=== PATIENT | female | born 1995 | race Caucasian/White ===

== ENCOUNTER 2016-09-15 10:08 | Emergency (ER) | payer MEDICAID, OTHER ==
[2016-09-15] MEDS ORDERED: Ondansetron ODT TAB* 4 MG PO ONE ×2 (12:22)
[2016-09-15 12:37] LABS: Urine Bilirubin Negative (Negative); Urine Glucose Negative (Negative); Urine Nitrite Negative (Negative)
[2016-09-15 14:32] VITALS: BP 128/62
--- NOTE | 2016-09-15 17:56 | ED ---
Meka Lind Salem, scribed for Sae Colorado MD on 09/15/16 at 1127 . Syncope/Near Syncope - HPI Summary HPI Summary: Patient is a 21 y/o female who presents to the ED s/p an episode of syncope yesterday night. She reports having nausea before the syncope and vomiting after it. She also reports she experienced lightheadedness, blurry vision, diaphoresis, and hot flashes before the syncope. She states she has some mild pressure in her head now (located mostly on the right side). She denies dysuria or diarrhea. Her LNMP was in April, but she is on BCP. - History Of Current Complaint Chief Complaint: EDSyncope Time Seen by Provider: 09/15/16 11:19 Hx Obtained From: Patient Onset/Duration: Gradual Onset, Lasting Days - 1 day. Activity At Onset: Other - At grocery store. Associated Head Trauma: No Aggravating Factor(s): Nothing Alleviating Factor(s): Nothing Associated Signs And Symptoms: Diaphoresis, Lightheadedness, Other - Nausea. Blurry vision. Mild pressure in head (right, temporal). - Allergies/Home Medications Allergies/Adverse Reactions: Allergies Allergy/AdvReac Type Severity Reaction Status Date / Time Nickel Allergy Rash Verified 08/10/15 21:49 PMH/Surg Hx/FS Hx/Imm Hx Endocrine/Hematology History: Denies: Hx Diabetes, Hx Thyroid Disease Cardiovascular History: Denies: Hx Hypertension Respiratory History: Reports: Hx Asthma Denies: Hx Chronic Obstructive Pulmonary Disease (COPD) GI History: Denies: Hx Ulcer Psychiatric History: Reports: Hx Anxiety - Ginger's mom when she was 11. Adjusting was hard., Hx Depression - Due to her mom's ., H[facility], [facility] [place] [facility]. She did not prefer this agency., Hx Suicide Attempt - after her mom's ; this prompted the inpatient hospitalization. Denies: Hx Attention Deficit Hyperactivity Disorder, Hx Eating Disorder, Hx Panic Disorder, Hx Post Traumatic Stress Disorder - But her mom's was a traumatic event for her., Hx Schizophrenia, Hx Bipolar Disorder, Hx of Violent Episodes Against Others, Hx Substance Abuse, Other Psychiatric Issues/Disorders - Surgical History Surgery Procedure, Year, and Place: NOVEMBER 2014 Infectious Disease History: No Infectious Disease History: Denies: Hx Hepatitis, Hx Human Immunodeficiency Virus (HIV), Traveled Outside the [place] in Last 30 Days - Family History Known Family History: Positive: Hypertension - Social History Alcohol Use: None Substance Use Type: Reports: None Smoking Status (MU): Former Smoker Type: Cigarettes Review of Systems Positive: Skin Diaphoresis, Other - Hot flash. Positive: Blurred Vision Positive: Nausea. Negative: Diarrhea Positive: no symptoms reported. Negative: dysuria Neurological: Other - Lightheadedness. Positive: Headache - Mild pressure. All Other Systems Reviewed And Are Negative: Yes Physical Exam Triage Information Reviewed: Yes Vital Signs On Initial Exam: Initial Vitals Temp Pulse Resp BP Pulse Ox 97.4 F 72 18 116/75 98 09/15/16 10:19 09/15/16 10:19 09/15/16 10:19 09/15/16 10:19 09/15/16 10:19 Vital Signs Reviewed: Yes Appearance: Positive: Well-Appearing, No Pain Distress Skin: Positive: Warm, Skin Color Reflects Adequate Perfusion, Dry Head/Face: Positive: Normal Head/Face Inspection Eyes: Positive: Normal ENT: Positive: Normal ENT inspection Neck: Positive: Supple, Nontender Respiratory/Lung Sounds: Positive: Clear to Auscultation, Breath Sounds Present Cardiovascular: Positive: RRR Abdomen Description: Positive: Nontender, Soft Bowel Sounds: Positive: Present Musculoskeletal: Positive: Normal Neurological: Positive: Normal Psychiatric: Positive: Normal, Affect/Mood Appropriate Diagnostics - Vital Signs Vital Signs Temp Pulse Resp BP Pulse Ox 09/15/16 10:19 97.4 F 72 18 116/75 98 - Laboratory Lab Results: Lab Results 09/15/16 Range/Units 11:25 Urine Color Yellow Urine Appearance Clear Urine pH 6.0 (5-9) Ur Specific [place] 1.021 (1.010-1.030) Urine Protein Negative (Negative) Urine Ketones Negative (Negative) Urine Blood Negative (Negative) Urine Nitrate Negative (Negative) Urine Bilirubin Negative (Negative) Urine Urobilinogen Negative (Negative) Ur Leukocyte Esterase Negative (Negative) Urine Glucose Negative (Negative) Urine Ascorbic Acid * H (Negative) Lab Statement: Any lab studies that have been ordered have been reviewed, and results considered in the medical decision making process. - EKG 1105 Cardiac Rate: NL EKG Interpretation: NSR @ 60 bpm. Re-Evaluation - Re-Evaluation First Eval Re-Evaluation Time: 14:05 Comment: Discused plan to DC with pt. She is agreable. Course/Dx Course Of Treatment: Ginger felt better after zofran and was completely nontoxic in appearance. This likely represents a viral syndrome and I will treat her symptomatically. - Diagnoses Provider Diagnoses: Near syncope Discharge - Discharge Plan Condition: Stable Disposition: HOME Prescriptions: Ondansetron ODT TAB* [Zofran Odt TAB*] 4 mg PO Q6H PRN #20 tab.odt PRN Reason: Nausea/Vomiting Patient Education Materials: Ondansetron (By mouth), Near Syncope (ED) Referrals: Carola MARTIN,[facility] [Primary Care Provider] - Additional Instructions: Follow up with PCP. The documentation as recorded by the Meka collins Salem accurately reflects the service I personally performed and the decisions made by me, Sae Colorado MD.
== END 2016-09-15 14:33 | disposition home or self-care (01) ==
LOC: ED 10:08
DX: R55 Syncope and collapse (principal); R42 Dizziness and giddiness; H53.8 Other visual disturbances; R11.0 Nausea; Z87.891 Personal history of nicotine dependence
CPT/HCPCS: 36415; 81003; 86703; 93005; 99282; A9270-GY

== ENCOUNTER 2016-11-09 17:04 | Emergency (ER) | payer MEDICAID ==
[2016-11-09 19:53] VITALS: BP 132/75
--- NOTE | 2016-11-09 20:19 | UC ---
Skin Complaint HPI - HPI Summary HPI Summary: The patient comes in today for: 1. Right facial swelling: Onset: She noticed this when she got up this morning. She had a "bump" last night, but "it was not swollen." Palliative/provocative: Eating and pressing on the right facial swelling makes it worse. Quality: Ache Region: Along the right mandible. Severity: 10/10 by her report, but she appears more like 4/10 Time: Constant. Associated symptoms: She states that she has painful teeth. Fever: None. Dental visit: She went yesterday and she had teeth pulled in the upper left. * - History of Current Complaint Chief Complaint: UCRespiratory Time Seen by Provider: 11/09/16 20:10 Stated Complaint: FACIAL SWELLING SINUS CONGESTION Hx Obtained From: Patient Hx Last Menstrual Period: depo, does not get periods - Allergy/Home Medications Allergies/Adverse Reactions: Allergies Allergy/AdvReac Type Severity Reaction Status Date / Time Nickel Allergy Rash Verified 08/10/15 21:49 Review of Systems Constitutional: Negative Skin: Negative Eyes: Negative ENT: Sore Throat, Nasal Discharge Respiratory: Negative, Cough Cardiovascular: Negative Gastrointestinal: Negative Genitourinary: Negative All Other Systems Reviewed And Are Negative: Yes PMH/Surg Hx/FS Hx/Imm Hx Previously Healthy: Yes Endocrine History Of: Denies: Diabetes, Thyroid Disease, Hyperthyroidism, Hypothyroidism, Dyslipidemia Cardiovascular History Of: Denies: Cardiac Disorders, Hypertension, Pacemaker/ICD, Myocardial Infarction , Congestive Heart Failure, Atrial Fibrillation, Deep Vein Thrombosis, Bleeding Disorders Respiratory History Of: Reports: Asthma - She takes albuterol to use prn. Denies: COPD, Bronchitis, Pneumonia, Pulmonary Embolism GI/ History Of: Denies: Gastroesophageal Reflux, Ulcer, Gastrointestinal Bleed, Gall Bladder Disease, Kidney Stones, Diverticulitis, Renal Disease, Urosepsis Neurological History Of: Denies: TIA, CVA, Dementia, Seizures, Migraine Psychological History Of: Reports: Anxiety - Ginger's mom when she was 11. Adjusting was hard., Depression - Due to her mom's . Denies: Bipolar Disorder, Schizophrenia, Post Traumatic Stress Disorder Cancer History Of: Denies: Lung Cancer, Colorectal Cancer, Breast Cancer, Prostate Cancer, Cervical Cancer Other History Of: Negative For: HIV, Hepatitis B, Hepatitis C, Anticoagulant Therapy - Surgical History Surgical History: Yes Surgery Procedure, Year, and Place: NOVEMBER 2014 - Family History Known Family History: Positive: Cardiac Disease, Hypertension - Social History Occupation: Unemployed Alcohol Use: Occasionally Substance Use Type: None Smoking Status (MU): Former Smoker Type: Cigarettes When Did the Patient Quit Smoking/Using Tobacco: april 2015 Physical Exam Triage Information Reviewed: Yes Appearance: Well-Appearing, No Pain Distress, Well-Nourished Vital Signs: Initial Vital Signs Temp 98.9 F 11/09/16 19:48 Pulse 74 11/09/16 19:48 Resp 18 11/09/16 19:48 BP 132/75 11/09/16 19:48 Pulse Ox 100 11/09/16 19:48 Vital Signs Reviewed: Yes Eyes: Positive: Conjunctiva Clear. Negative: Discharge ENT: Positive: Hearing grossly normal. Negative: Pharyngeal erythema, Nasal congestion, Nasal drainage, TM bulging, TM dull, TM red, Tonsillar swelling, Tonsillar exudate Dental: Positive: Gross Decay/Caries @, Other: - Teeth #28 and #29 have deep black craters of the teeth. The swelling of her right cheek corresponds to this area. The gum line is tender to palpation at those teeth. Neck: Positive: Supple, Nontender, No Lymphadenopathy. Negative: Nuchal Rigidity Respiratory: Positive: Lungs clear, No respiratory distress, No accessory muscle use. Negative: Rhonchi, Wheezing Cardiovascular: Positive: RRR, No Murmur Abdomen Description: Positive: Nontender, No Organomegaly, Soft. Negative: Distended, Guarding Musculoskeletal: Positive: Strength Intact, ROM Intact, No Edema Neurological: Positive: Alert, Muscle Tone Normal Psychological: Positive: Age Appropriate Behavior, Consolable Skin: Negative: rashes, breakdown Course/Dx - Diagnoses Provider Diagnoses: Pulpitis #28 and #29. Discharge - Discharge Plan Condition: Stable Disposition: HOME Patient Education Materials: Dental Abscess (ED) Additional Instructions: Follow up with your family dentist as soon as you can.
== END 2016-11-09 21:38 | disposition home or self-care (01) ==
LOC: UCEAST 17:04
DX: K04.01 Reversible pulpitis (principal); J45.909 Unspecified asthma, uncomplicated; F41.8 Other specified anxiety disorders; Z87.891 Personal history of nicotine dependence
CPT/HCPCS: 99212; G0463

== ENCOUNTER 2018-04-16 14:47 | Emergency (ER) | payer MEDICAID, OTHER ==
[2018-04-16] MEDS ORDERED: Thiamine IV* 100 MG, Folic Acid IV* 1 MG, Multiple Vitamin IV ADULT* 10 ML in NS 0.9% 1... IV ONE (15:06)
[2018-04-16] MEDS ORDERED: Acetaminophen TAB* 325 MG PO ONE (15:06)
[2018-04-16] MEDS ORDERED: Ondansetron INJ* 2 MG/ML VIAL IV ONE (15:06)
--- NOTE | 2018-04-16 15:40 | ED ---
Nausea/Vomiting/Diarrhea HPI - HPI Summary HPI Summary: Patient is a 23-year-old female presenting to the ED with nausea and vomiting after drinking approximately 10 drinks of vodka and cranberry juice last evening. She states "I'm holding over." She states she has been throwing up 3 with pink fluid. Denies any chest pain or difficulty breathing. She is also endorsing some sweats and chills, but denies any fever. She has been otherwise well and denies any recent illness. She normally has 3-4 drinks when she drinks and this time she drank 10+ drinks. Denies any urinary symptoms, abdominal pain or chance of . - History of Current Complaint Chief Complaint: EDGeneral Stated Complaint: SPIT UP BLOOD Time Seen by Provider: 04/16/18 14:58 Hx Obtained From: Patient Hx Last Menstrual Period: depo, does not get periods ?: No Onset/Duration: Sudden Onset Timing: Constant Severity Initially: Moderate Severity Currently: Moderate Pain Intensity: 10 Pain Scale Used: 0-10 Numeric Aggravating Factor(s): Nothing Nausea/Vomiting Presence: None Vomiting Frequency: Every 3-4 hours Nausea/Vomiting Duration: 0-12 hours Diarrhea Presence: No - Risk Factors Influenza Risk Factors: Negative Surgical Obstruction Risk Factor(s): Negative - Allergies/Home Medications Allergies/Adverse Reactions: Allergies Allergy/AdvReac Type Severity Reaction Status Date / Time nickel Allergy Rash Verified 04/16/18 14:50 Home Medications: Home Medications NK [No Home Medications Reported] 04/16/18 [History Confirmed 04/16/18] PMH/Surg Hx/FS Hx/Imm Hx Previously Healthy: Yes Endocrine/Hematology History: Denies: Hx Anticoagulant Therapy, Hx Diabetes, Hx Thyroid Disease Cardiovascular History: Denies: Hx Congestive Heart Failure, Hx Deep Vein Thrombosis, Hx Hypertension , Hx Myocardial Infarction, Hx Pacemaker/ICD Respiratory History: Reports: Hx Asthma - She takes albuterol to use prn. Denies: Hx Chronic Obstructive Pulmonary Disease (COPD), Hx Lung Cancer, Hx Pneumonia, Hx Pulmonary Embolism GI History: Denies: Hx Gall Bladder Disease, Hx Gastrointestinal Bleed, Hx Ulcer, Hx Urosepsis History: Denies: Hx Kidney Stones, Hx Renal Disease Neurological History: Denies: Hx Dementia, Hx Migraine, Hx Seizures, Hx Transient Ischemic Attacks (TIA) Psychiatric History: Reports: Hx Anxiety - Ginger's mom when she was 11. Adjusting was hard., Hx Depression - Due to her mom's ., [facility], [facility] [place] [facility]. She did not prefer this agency., Hx Suicide Attempt - after her mom's ; this prompted the inpatient hospitalization. Denies: Hx Attention Deficit Hyperactivity Disorder, Hx Eating Disorder, Hx Panic Disorder, Hx Post Traumatic Stress Disorder - But her mom's was a traumatic event for her., Hx Schizophrenia, Hx Bipolar Disorder, Hx of Violent Episodes Against Others, Hx Substance Abuse, Other Psychiatric Issues/Disorders - Surgical History Surgery Procedure, Year, and Place: NOVEMBER 2014 - Immunization History Hx Pertussis Vaccination: No Immunizations Up to Date: Yes Infectious Disease History: No Infectious Disease History: Denies: Hx Hepatitis, Hx Human Immunodeficiency Virus (HIV), Traveled Outside the [place] in Last 30 Days - Family History Known Family History: Positive: Cardiac Disease, Hypertension - Social History Occupation: Employed Full-time Lives: With Family Alcohol Use: None Hx Substance Use: Yes - normal limits Substance Use Type: Reports: Marijuana Substance Use Comment - Amount & Last Used: 04/15 Smoking Status (MU): Current Some Day Smoker Type: Cigarettes Review of Systems Constitutional: Negative Negative: Fever, Chills, Fatigue, Skin Diaphoresis Negative: Palpitations, Chest Pain Negative: Shortness Of Breath, Cough Positive: Vomiting, Nausea. Negative: Abdominal Pain, Diarrhea Genitourinary: Negative Positive: no symptoms reported, see HPI Negative: Myalgia Positive: Headache Psychological: Normal All Other Systems Reviewed And Are Negative: Yes Physical Exam Triage Information Reviewed: Yes Vital Signs On Initial Exam: Initial Vitals Temp Pulse Resp BP Pulse Ox 96.5 F 83 16 130/88 97 04/16/18 14:50 04/16/18 14:50 04/16/18 14:50 04/16/18 14:50 04/16/18 14:50 Vital Signs Reviewed: Yes Appearance: Positive: Well-Appearing, Well-Nourished Skin: Positive: Warm, Skin Color Reflects Adequate Perfusion Head/Face: Positive: Normal Head/Face Inspection Eyes: Positive: EOMI, FREDO, Conjunctiva Clear Neck: Positive: Supple Respiratory/Lung Sounds: Positive: Clear to Auscultation, Breath Sounds Present Cardiovascular: Positive: RRR, Pulses are Symmetrical in both Upper and Lower Extremities Abdomen Description: Positive: Nontender, Soft Musculoskeletal: Positive: Normal, Strength/ROM Intact Neurological: Positive: Speech Normal Psychiatric: Positive: Normal, Affect/Mood Appropriate AVPU Assessment: Alert Diagnostics - Vital Signs Vital Signs Temp Pulse Resp BP Pulse Ox 04/16/18 14:50 96.5 F 83 16 130/88 97 - Laboratory Lab Statement: Any lab studies that have been ordered have been reviewed, and results considered in the medical decision making process. Naus/Vom/Diarrhea Course/Dx - Course Course Of Treatment: During the course of treatment, the patient is evaluated for alcohol intoxication hangover. She appears nontoxic with normal vital signs. She is given 1 banana bag and Zofran with good relief. - Differential Dx/Diagnosis Provider Diagnoses: alcohol reaction Condition At Discharge: Stable Discharge - Sign-Out/Discharge Documenting (check all that apply): Patient Departure - Discharge Plan Condition: Stable Disposition: HOME Referrals: Carola MARTIN,[facility] [Primary Care Provider] - Additional Instructions: [place] food and gatorade! - Billing Disposition and Condition Condition: STABLE Disposition: Home
[2018-04-16 17:16] VITALS: BP 123/78
== END 2018-04-16 17:16 | disposition home or self-care (01) ==
LOC: ED 14:47
DX: F10.20 Alcohol dependence, uncomplicated (principal); F17.210 Nicotine dependence, cigarettes, uncomplicated
CPT/HCPCS: 96365; 96375; 99282; A9270-GY; J2405; J3411

== ENCOUNTER 2018-09-14 12:19 | Emergency (ER) | payer OTHER ==
[2018-09-14 12:51] LABS: Influenza A Molecular POSITIVE (Negative)
[2018-09-14] MEDS ORDERED: Ibuprofen TAB* 600 MG PO ONE (13:42)
[2018-09-14 13:59] VITALS: BP 133/97
--- NOTE | 2018-09-14 15:17 | ED ---
Influenza-Like Illness - HPI Summary HPI Summary: Patient is a 23-year-old female with no significant PMH presenting to the ED with flulike symptoms. She endorses cough, congestion, body aches 2 days. She endorses subjective fevers, sweats and chills. Denies any chest pain. Denies any urinary symptoms. She denies any abdominal pain. She states she is otherwise healthy and takes no medications. She did not receive flu vaccine this year. - History of Current Complaint Chief Complaint: EDFluSymptoms Time Seen by Provider: 09/14/18 12:41 Hx Obtained From: Patient Onset/Duration: Sudden Onset Severity: Moderate Associated Signs & Symptoms: Fever, T Max - 100.5, F/C, Myalgia, Cough, Nasal Congestion Related Hx: Possible Flu/Infectious Exposure - Risk Factors Influenza Risk Factors: Negative - Allergy/Home Medications Allergies/Adverse Reactions: Allergies Allergy/AdvReac Type Severity Reaction Status Date / Time nickel Allergy Rash Verified 09/14/18 12:23 PMH/Surg Hx/FS Hx/Imm Hx Previously Healthy: Yes Endocrine/Hematology History: Denies: Hx Anticoagulant Therapy, Hx Diabetes, Hx Thyroid Disease Cardiovascular History: Denies: Hx Congestive Heart Failure, Hx Deep Vein Thrombosis, Hx Hypertension , Hx Myocardial Infarction, Hx Pacemaker/ICD Respiratory History: Reports: Hx Asthma - She takes albuterol to use prn. Denies: Hx Chronic Obstructive Pulmonary Disease (COPD), Hx Lung Cancer, Hx Pneumonia, Hx Pulmonary Embolism GI History: Denies: Hx Gall Bladder Disease, Hx Gastrointestinal Bleed, Hx Ulcer, Hx Urosepsis History: Denies: Hx Kidney Stones, Hx Renal Disease Neurological History: Denies: Hx Dementia, Hx Migraine, Hx Seizures, Hx Transient Ischemic Attacks (TIA) Psychiatric History: Reports: Hx Anxiety - Ginger's mom when she was 11. Adjusting was hard., Hx Depression - Due to her mom's ., [facility], [facility] [facility]. She did not prefer this agency., Hx Suicide Attempt - after her mom's ; this prompted the inpatient hospitalization. Denies: Hx Attention Deficit Hyperactivity Disorder, Hx Eating Disorder, Hx Panic Disorder, Hx Post Traumatic Stress Disorder - But her mom's was a traumatic event for her., Hx Schizophrenia, Hx Bipolar Disorder, Hx of Violent Episodes Against Others, Hx Substance Abuse, Other Psychiatric Issues/Disorders - Surgical History Surgery Procedure, Year, and Place: NOVEMBER 2014 - Immunization History Hx Pertussis Vaccination: No Immunizations Up to Date: Yes Infectious Disease History: No Infectious Disease History: Denies: Hx Hepatitis, Hx Human Immunodeficiency Virus (HIV), Traveled Outside the [place] in Last 30 Days - Family History Known Family History: Positive: Cardiac Disease, Hypertension - Social History Occupation: Employed Full-time Lives: Alone Alcohol Use: None Hx Substance Use: Yes - normal limits Substance Use Type: Reports: Marijuana Substance Use Comment - Amount & Last Used: 04/15 Hx Tobacco Use: Yes Smoking Status (MU): Current Some Day Smoker Type: Cigarettes Review of Systems Positive: Fever, Chills, Fatigue, Skin Diaphoresis Negative: Photophobia, Blurred Vision Negative: Sore Throat Negative: Palpitations, Chest Pain Positive: Shortness Of Breath, Cough Positive: Nausea. Negative: Abdominal Pain, Vomiting, Diarrhea Genitourinary: Negative Positive: no symptoms reported, see HPI Positive: Myalgia Skin: Negative Positive: Headache All Other Systems Reviewed And Are Negative: Yes Physical Exam Triage Information Reviewed: Yes Vital Signs On Initial Exam: Initial Vitals Temp Pulse Resp BP Pulse Ox 98.2 F 99 16 133/92 97 09/14/18 12:20 09/14/18 12:20 09/14/18 12:20 09/14/18 12:20 09/14/18 12:20 Vital Signs Reviewed: Yes Appearance: Positive: Well-Appearing, Well-Nourished, Ill-Appearing Skin: Positive: Warm, Diaphoretic ENT: Positive: Pharynx normal. Negative: Tonsillar swelling, Tonsillar exudate , Hoarse voice, Dental tenderness, Sinus tenderness, Uvula midline Neck: Positive: Supple, No Lymphadenopathy Respiratory/Lung Sounds: Positive: Clear to Auscultation, Breath Sounds Present Cardiovascular: Positive: RRR, Pulses are Symmetrical in both Upper and Lower Extremities Musculoskeletal: Positive: Strength/ROM Intact Neurological: Positive: Alert, Oriented to Person Place, Time, Speech Normal Psychiatric: Positive: Affect/Mood Appropriate Diagnostics - Vital Signs Vital Signs Temp Pulse Resp BP Pulse Ox 09/14/18 13:58 100.0 F 82 14 133/97 98 09/14/18 12:20 98.2 F 99 16 133/92 97 - Laboratory Lab Results: Lab Results 09/14/18 Range/Units 12:46 Influenza A (Rapid) Positive A (Negative) Lab Statement: Any lab studies that have been ordered have been reviewed, and results considered in the medical decision making process. Flu Symptom Course/Dx - Course Course Of Treatment: During the course treatment, the patient's evaluated for flulike symptoms. Patient appears well, however slightly diaphoretic. Lungs CTA. RRR. Influenza positive. Discussed treatment options with the patient. She declines medications at this time. I have given her supportive care measures. - Diagnoses Differential Diagnosis/HQI/PQRI: Positive: Bronchitis, Influenza Provider Diagnoses: Influenza A Discharge - Sign-Out/Discharge Documenting (check all that apply): Patient Departure Patient Received Moderate/Deep Sedation with Procedure: No - Discharge Plan Condition: Stable Disposition: HOME Patient Education Materials: Influenza (ED) Referrals: Carola MARTIN,Vandana [Primary Care Provider] - Additional Instructions: Follow up with PCP for any worsening symptoms Continue with Tamiflu at home Drink plenty of fluids Tylenol and ibuprofen may be used intermittently for symptom control - Billing Disposition and Condition Condition: STABLE Disposition: Home
== END 2018-09-14 13:58 | disposition home or self-care (01) ==
LOC: ED 12:19
DX: J10.1 Influenza due to other identified influenza virus with other respiratory manifestations (principal); J45.909 Unspecified asthma, uncomplicated; Z72.0 Tobacco use
CPT/HCPCS: 99282; A9270-GY

== ENCOUNTER 2018-12-31 12:17 | Emergency (ER) | payer OTHER ==
[2018-12-31] MEDS ORDERED: NS 0.9% 1000 ML** 1,000 ML IV ONE (13:18)
[2018-12-31] MEDS ORDERED: diPHENhydraMINE IV* 50 MG/ML 1 ml VIAL (BENADRYL) IV ONE (13:18)
[2018-12-31] MEDS ORDERED: Ketorolac INJ* 30 MG/ML 1 ML VIAL IV PUSH ONE (13:18)
[2018-12-31] MEDS ORDERED: Metoclopramide IV* 5 MG/ML 2 ML VIAL IV ONE (13:18)
--- NOTE | 2018-12-31 14:27 | ED ---
Headache - HPI Summary HPI Summary: A 23 y/o female presents to [facility] with a chief complaint of headache for the past week. She has never been to a neurologist, but states that she was diagnosed with migraines from her PCP. The patient rates her pain as a 10/10 in severity. She denies fevers, chills, neck pain or neck stiffness, but reports photophobia, and N/V this morning. She is on Nexplanon control. She has no known allergies. - History Of Current Complaint Chief Complaint: EDHeadache Stated Complaint: MIGRAINE/VOMITING PER PT Time Seen by Provider: 12/31/18 13:13 Hx Obtained From: Patient Hx Last Menstrual Period: depo, does not get periods Onset/Duration: Sudden Onset Initially Headache Was: Severe Currently Pain Is: Current Pain Scale(0-10)= - 10, Severe Timing: Constant Character: Unable To Describe Location of Headache: Diffuse Radiates to: no radiating pain Aggravating Factor: Bright Lights Allevating Factors: Nothing Associated Signs And Symptoms: Nausea, Vomiting - Allergies/Home Medications Allergies/Adverse Reactions: Allergies Allergy/AdvReac Type Severity Reaction Status Date / Time nickel Allergy Rash Verified 12/31/18 12:42 Home Medications: Home Medications Ibuprofen TAB* [Motrin TAB* 400 MG] 400 mg PO Q6H PRN 12/31/18 [History Confirmed 12/31/18] PMH/Surg Hx/FS Hx/Imm Hx Endocrine/Hematology History: Denies: Hx Anticoagulant Therapy, Hx Diabetes, Hx Thyroid Disease Cardiovascular History: Denies: Hx Congestive Heart Failure, Hx Deep Vein Thrombosis, Hx Hypertension , Hx Myocardial Infarction, Hx Pacemaker/ICD Respiratory History: Reports: Hx Asthma - She takes albuterol to use prn. Denies: Hx Chronic Obstructive Pulmonary Disease (COPD), Hx Lung Cancer, Hx Pneumonia, Hx Pulmonary Embolism GI History: Denies: Hx Gall Bladder Disease, Hx Gastrointestinal Bleed, Hx Ulcer, Hx Urosepsis History: Denies: Hx Kidney Stones, Hx Renal Disease Neurological History: Denies: Hx Dementia, Hx Migraine, Hx Seizures, Hx Transient Ischemic Attacks (TIA) Psychiatric History: Reports: Hx Anxiety - Ginger's mom when she was 11. Adjusting was hard., Hx Depression - Due to her mom's ., Hx [facility], [facility] She did not prefer this agency., Hx Suicide Attempt - after her mom's ; this prompted the inpatient hospitalization. Denies: Hx Attention Deficit Hyperactivity Disorder, Hx Eating Disorder, Hx Panic Disorder, Hx Post Traumatic Stress Disorder - But her mom's was a traumatic event for her., Hx Schizophrenia, Hx Bipolar Disorder, Hx of Violent Episodes Against Others, Hx Substance Abuse, Other Psychiatric Issues/Disorders - Surgical History Surgery Procedure, Year, and Place: NOVEMBER 2014 Infectious Disease History: No Infectious Disease History: Denies: Hx Hepatitis, Hx Human Immunodeficiency Virus (HIV), Traveled Outside the [place] in Last 30 Days - Family History Known Family History: Positive: Cardiac Disease, Hypertension - Social History Alcohol Use: None Hx Substance Use: Yes - normal limits Substance Use Type: Reports: Marijuana Substance Use Comment - Amount & Last Used: 04/15 Hx Tobacco Use: Yes Smoking Status (MU): Current Some Day Smoker Type: Cigarettes Review of Systems Negative: Fever, Chills Positive: Photophobia Positive: Vomiting, Nausea Positive: Other - negative: neck pain or neck stiffness Positive: Headache All Other Systems Reviewed And Are Negative: Yes Physical Exam - Summary Physical Exam Summary: GENERAL: Patient is a well-developed and nourished F who is lying comfortable in the stretcher. Patient is not in any acute respiratory distress. HEAD AND FACE: Normocephalic EYES: PERRLA, EOMI x 2. EARS: Hearing grossly intact. MOUTH: Oropharynx within normal limits. NECK: Supple, trachea is midline, no adenopathy, no JVD, no carotid bruit. CHEST: Symmetric, no tenderness at palpation LUNGS: Clear to auscultation bilaterally. No wheezing or crackles. CVS: Regular rate and rhythm, S1 and S2 present, no murmurs or gallops appreciated. ABDOMEN: Soft, non-tender. Bowel sounds are normal. No abnormal abdominal pulsations. EXTREMITIES: Full ROM in all major joints, no edema, no cyanosis or clubbing. NEURO: Alert and oriented x 3. No acute neurological deficits. Speech is normal and follows commands. SKIN: Dry and warm Neuro exam extended: Cranial nerves II-XII grossly intact, no dysmetria finger to nose, nml heel to olvera Triage Information Reviewed: Yes Vital Signs On Initial Exam: Initial Vitals Temp Pulse Resp BP Pulse Ox 97.3 F 75 14 124/94 98 12/31/18 12:41 12/31/18 12:41 12/31/18 12:41 12/31/18 12:41 12/31/18 12:41 Vital Signs Reviewed: Yes Diagnostics - Vital Signs Vital Signs Temp Pulse Resp BP Pulse Ox 12/31/18 13:47 70 134/94 94 12/31/18 13:43 70 134/94 93 12/31/18 13:13 72 129/92 98 12/31/18 12:41 97.3 F 75 14 124/94 98 - Laboratory Lab Statement: Any lab studies that have been ordered have been reviewed, and results considered in the medical decision making process. Re-Evaluation - Re-Evaluation First Eval Re-Evaluation Time: 14:26 Change: Improved Comment: Pt reports feeling better and wants to go home. Headache Course/Dx - Course Course Of Treatment: A 23 y/o female presents to [facility] with a chief complaint of headache for the past week. The physical exam was unremarkable. In the ED course the patient was given Toradol IV, Reglan IV, Benadryl IV and Sodium Chloride IV. Upon re-eval the patient was feeling better and requesting discharge home. The patient will be discharged home. I discussed results with patient, and she reports feeling better. She is hemodynamically stable and safe for discharge. Strict return precautions given and she will otherwise follow up with her PCP. - Diagnoses Provider Diagnoses: Headache Discharge - Sign-Out/Discharge Documenting (check all that apply): Patient Departure - DC Patient Received Moderate/Deep Sedation with Procedure: No - Discharge Plan Condition: Stable Disposition: HOME Patient Education Materials: Acute Headache (DC) Referrals: Carola MARTINjosephine [Primary Care Provider] - (1-3 days) Additional Instructions: Follow up with your primary care physician in 1-3 days. RETURN TO THE EMERGENCY DEPARTMENT FOR CHANGING OR WORSENING SYMPTOMS. - Billing Disposition and Condition Condition: STABLE Disposition: Home - Attestation Statements Document Initiated by Scribe: Yes Documenting Scribe: Omar Coronado Provider For Whom Scribe is Documenting (Include Credential): Scot Nicole MD Scribe Attestation: Omar Lind, scribed for Scot Nicole MD on 12/31/18 at 1815. Scribe Documentation Reviewed: Yes Provider Attestation: The documentation as recorded by the scribe, Omar Coronado accurately reflects the service I personally performed and the decisions made by me, Thao Nicole MD Status of Scribe Document: Viewed
[2018-12-31 14:31] VITALS: BP 128/91
== END 2018-12-31 14:34 | disposition home or self-care (01) ==
LOC: ED 12:17
DX: R51 Headache (principal); F17.210 Nicotine dependence, cigarettes, uncomplicated
CPT/HCPCS: 96361; 96374; 96375; 99282; J1200; J1885; J2765

== ENCOUNTER 2019-07-05 17:24 | Emergency (ER) | payer OTHER ==
--- NOTE | 2019-07-05 17:42 | ED ---
Abdominal Pain/Female - HPI Summary HPI Summary: Patient complains of bilateral lower pelvic pain starting this morning, sensation of tingling all urinating with increased frequency, and/V 1. Abdominal pain described as constant, new onset, sharp and crampy, 10 out of 10 at worst, worse with walking. Denies fever, cough, sore throat, CP, SOB, diarrhea, vaginal symptoms. Medical history is none. Abdominal surgical history is none. LMP 1 month ago. - History of Current Complaint Chief Complaint: EDUrogenitalProblems Stated Complaint: STOMACH TROUBLE PER PT Time Seen by Provider: 07/05/19 17:39 Hx Obtained From: Patient Hx Last Menstrual Period: depo, does not get periods Onset/Duration: Sudden Onset, Lasting Hours Timing: Constant Severity Initially: Moderate Severity Currently: Severe Pain Intensity: 10 Pain Scale Used: 0-10 Numeric Location: Discrete At: RLQ, Discrete At: LLQ, Suprapubic Radiates: No Character: Sharp, Cramping Aggravating Factor(s): Movement Alleviating Factor(s): Position Associated Signs and Symptoms: Positive: Urinary Symptoms, Nausea, Vomiting Allergies/Adverse Reactions: Allergies Allergy/AdvReac Type Severity Reaction Status Date / Time nickel Allergy Rash Verified 03/04/19 15:22 PMH/Surg Hx/FS Hx/Imm Hx Endocrine/Hematology History: Denies: Hx Anticoagulant Therapy, Hx Diabetes, Hx Thyroid Disease Cardiovascular History: Denies: Hx Congestive Heart Failure, Hx Deep Vein Thrombosis, Hx Hypertension , Hx Myocardial Infarction, Hx Pacemaker/ICD Respiratory History: Reports: Hx Asthma - She takes albuterol to use prn. Denies: Hx Chronic Obstructive Pulmonary Disease (COPD), Hx Lung Cancer, Hx Pneumonia, Hx Pulmonary Embolism GI History: Denies: Hx Gall Bladder Disease, Hx Gastrointestinal Bleed, Hx Ulcer, Hx Urosepsis History: Denies: Hx Kidney Stones, Hx Renal Disease Sensory History: Denies: Hx Eye Prosthesis Opthamlomology History: Denies: Hx Legally Blind EENT History: Denies: Hx Deafness Neurological History: Denies: Hx Dementia, Hx Migraine, Hx Seizures, Hx Transient Ischemic Attacks (TIA) Psychiatric History: Reports: Hx Anxiety - Ginger's mom when she was 11. Adjusting was hard., Hx Depression - Due to her mom's ., Hx [facility] - [facility], Hx [facility] - [facility]. She did not prefer this agency., Hx Suicide Attempt - after her mom's ; this prompted the inpatient hospitalization. Denies: Hx Attention Deficit Hyperactivity Disorder, Hx Eating Disorder, Hx Panic Disorder, Hx Post Traumatic Stress Disorder - But her mom's was a traumatic event for her., Hx Schizophrenia, Hx Bipolar Disorder, Hx of Violent Episodes Against Others, Hx Substance Abuse, Other Psychiatric Issues/Disorders - Surgical History Surgery Procedure, Year, and Place: NOVEMBER 2014 Infectious Disease History: No Infectious Disease History: Denies: Hx Hepatitis, Hx Human Immunodeficiency Virus (HIV), Traveled Outside the [place] in Last 30 Days - Family History Known Family History: Positive: Cardiac Disease, Hypertension - Social History Alcohol Use: Weekly Alcohol Amount: reports drinking a pint of Henasy last nigh Hx Substance Use: Yes - normal limits Substance Use Type: Reports: Marijuana Substance Use Comment - Amount & Last Used: 04/15 Hx Tobacco Use: Yes Smoking Status (MU): Current Some Day Smoker Type: Cigarettes Review of Systems Constitutional: Negative Eyes: Negative ENT: Negative Cardiovascular: Negative Respiratory: Negative Positive: Abdominal Pain, Vomiting, Nausea Positive: frequency Musculoskeletal: Negative Skin: Negative Neurological: Negative Psychological: Normal All Other Systems Reviewed And Are Negative: Yes Physical Exam - Summary Physical Exam Summary: Mildly tender to palpation lower quadrants and suprapubically. Otherwise normal abdominal exam. Triage Information Reviewed: Yes Vital Signs On Initial Exam: Initial Vitals Temp Pulse Resp BP Pulse Ox 97.3 F 95 19 135/76 99 07/05/19 17:25 07/05/19 17:25 07/05/19 17:25 07/05/19 17:25 07/05/19 17:25 Vital Signs Reviewed: Yes Appearance: Positive: Well-Appearing Skin: Positive: Warm Head/Face: Positive: Normal Head/Face Inspection Eyes: Positive: Normal Neck: Positive: Supple Respiratory/Lung Sounds: Positive: Clear to Auscultation Cardiovascular: Positive: Normal Abdomen Description: Positive: Other: Musculoskeletal: Positive: Normal Neurological: Positive: Normal Psychiatric: Positive: Normal AVPU Assessment: Alert - Luis Antonio Coma Scale Best Eye Response: 4 - Spontaneous Best Motor Response: 6 - Obeys Commands Best Verbal Response: 5 - Oriented Coma Scale Total: 15 Procedures - Sedation Patient Received Moderate/Deep Sedation with Procedure: No Diagnostics - Vital Signs Vital Signs Temp Pulse Resp BP Pulse Ox 07/05/19 17:25 97.3 F 95 19 135/76 99 - Laboratory Result Diagrams: 07/05/19 17:49 07/05/19 17:49 Lab Statement: Any lab studies that have been ordered have been reviewed, and results considered in the medical decision making process. Abdominal Pain Fem Course/Dx - Course Course Of Treatment: Patient complains of bilateral lower pelvic pain starting this morning, sensation of tingling all urinating with increased frequency, and/ V 1. Abdominal pain described as constant, new onset, sharp and crampy, 10 out of 10 at worst, worse with walking. Denies fever, cough, sore throat, CP, SOB, diarrhea, vaginal symptoms. Medical history is none. Abdominal surgical history is none. LMP 1 month ago. Vital signs within normal limits. WBC 15. CRP 36. HCG 0.63. Labs otherwise unremarkable. Urine suggests possible UTI, possible candiduria. Ultrasound suggests possible hemorrhagic cyst versus endometrioma of the left ovary measuring a maximum of 1.3 cm. No evidence of ovarian torsion. Pelvic exam suggests is infection of the vaginal vault. Diflucan 150 by mouth 1. Toradol 30 mg IV. Cultures from urine and pelvic exams pending. Advised patient to get follow-up hCG reading in 2 days. - Diagnoses Provider Diagnoses: Yeast infection of the vagina, Ovarian cyst Discharge ED - Sign-Out/Discharge Documenting (check all that apply): Patient Departure - Discharge Plan Condition: Stable Disposition: HOME Prescriptions: Ondansetron ODT TAB* [Zofran 4 MG Odt TAB*] 4 mg PO Q8H PRN 4 Days #14 tab.odt PRN Reason: Nausea Patient Education Materials: Ovarian Cyst (ED), Yeast Infection (ED) Referrals: Ilana Blackwell MD [Primary Care Provider] - Devan Smith MD [Medical Doctor] - Additional Instructions: You have been treated for yeast infection here in the ED. Urine cultures and vaginal cultures are pending and you will be called if results of the cultures require treatment. For ovarian cyst alternate ibuprofen 600 mg with Tylenol 650 mg every 3 hours if needed for pain over the next 4 days. Follow-up with OB /[facility] Dr Smith for further evaluation of cysts. Return to the ED for any new or worsening symptoms. - Billing Disposition and Condition Condition: STABLE Disposition: Home
[2019-07-05 18:02] LABS: ABS Basophils 0.1 10^3/ul (0-0.2); ABS Eosinophils 0.1 10^3/ul (0-0.6); ABS Lymphocytes 1.8 10^3/ul (1.0-4.8); ABS Monocytes 1.1 10^3/ul (0-0.8); ABS Neutrophils 11.9 10^3/ul (1.5-7.7); Eosinophil % 0.4 %; Hematocrit 41 % (35-47); Hemoglobin 13.6 g/dL (12.0-16.0); Mean Corpuscular HGB Conc 33 g/dL (31-36); Mean Corpuscular Hemoglobin 27 pg (27-31); Mean Corpuscular Volume 83 fL (80-97); Mean Platelet Volume 7.9 fL (7.4-10.4); Platelet Count 267 10^3/uL (150-450); Red Blood Count 4.97 10^6 /uL (3.70-4.87); Red Cell Distribution Width 14 % (10-15)
[2019-07-05 18:20] LABS: Albumin 4.4 g/dL (3.2-5.2); Albumin/Globulin Ratio 1.4 (1-3); BUN/Creatinine Ratio 14.9 (8-20); C Reactive Protein 36.44 mg/L (<8.01); Calcium 9.5 mg/dL (8.6-10.3); EGFR African American 130.8 (>60); EGFR Non-African American 108.1 (>60); Globulin 3.1 g/dL (2-4); Potassium 3.7 mmol/L (3.5-5.0); Total Bilirubin 0.7 mg/dL (0.2-1.0); Total Protein 7.5 g/dL (6.4-8.9)
[2019-07-05 18:26] LABS: HCG Pregnancy 0.63 mIU/mL
[2019-07-05 18:32] LABS: Urine Appearance Turbid; Urine Bilirubin Negative (Negative); Urine Blood 2+ (Negative); Urine Color Yellow; Urine Glucose Negative (Negative); Urine Ketones Negative (Negative); Urine Nitrite Negative (Negative); Urine Protein 2+(100 mg/dL) (Negative); Urine Specific Gravity 1.013 (1.010-1.030); Urine Urobilinogen Negative (Negative)
[2019-07-05 18:36] LABS: Urine Bacteria Absent (Absent); Urine Red Blood Cell 2+(6-10/hpf) (Absent); Urine Squamous Epithelial Cell Present (Absent); Urine White Blood Cell 3+(>20/hpf) (Absent)
[2019-07-05] MEDS: NS 0.9% 1000 ML** 1,000 ML IV ONE (18:52)
[2019-07-05] MEDS ORDERED: Ondansetron ODT TAB* 4 MG PO ONE (18:53)
[2019-07-05] MEDS: Ondansetron INJ* 2 MG/ML VIAL IV ONE (18:58)
[2019-07-05 18:59] LABS: HIV 4th Generation Nonreactive (Nonreactive)
[2019-07-05 19:02] VITALS: BP 150/95
[2019-07-05] MEDS: Ibuprofen TAB* 600 MG PO ONE (19:42)
[2019-07-05] MEDS: Ondansetron ODT TAB* 4 MG PO ONE (19:42)
[2019-07-05] MEDS: Ketorolac INJ* 30 MG/ML 1 ML VIAL IM ONE (20:34)
[2019-07-05] MEDS: Fluconazole 150 MG TAB PO ONE (20:34)
[2019-07-06 12:42] LABS: Chlamydia trachomatis NAA Negative (Negative); Neisseria gonorrhoeae (GC) NAA Negative (Negative)
--- NOTE | 2019-07-07 15:20 | ED ---
Imaging and Labs Follow Up Follow Up Type: Labs/Cultures Labs/Culture Result: Vaginal DNA positive for Gardnerella, negative for Carmelina Patient Communication/Plan: Patient was not treated prior to discharge Patient Communication/Plan: Attempted to reach patient on 07/07/19 with no answer. Mailbox full. We'll send a letter. Provider Diagnoses: Yeast infection of the vagina, Ovarian cyst
--- NOTE | 2019-07-08 08:56 | ED ---
Imaging and Labs Follow Up Follow Up Type: Labs/Cultures Labs/Culture Result: Gardnerella positive for bacterial vaginosis Patient Communication/Plan: Patient returned call to emergency department at 08 50 on this date. 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 She was told to abstain from alcohol ingestion while taking metronidazole. Provider Diagnoses: Yeast infection of the vagina, Ovarian cyst
--- NOTE | 2019-07-09 05:43 | ED ---
Imaging and Labs Follow Up Follow Up Type: Labs/Cultures Labs/Culture Result: Urine culture final shows greater than 100,000 Escherichia coli Patient Communication/Plan: Urine culture results are considered inaccurate as simple as contaminated. Patient was contacted yesterday on 07/08/2019 and did not have urinary tract symptoms. At that time patient was treated appropriately for bacterial vaginosis. Provider Diagnoses: Yeast infection of the vagina, Ovarian cyst
== END 2019-07-05 20:45 | disposition home or self-care (01) ==
LOC: ED 17:24
DX: B37.3 Candidiasis of vulva and vagina (principal); N83.202 Unspecified ovarian cyst, left side; J45.909 Unspecified asthma, uncomplicated; F41.9 Anxiety disorder, unspecified; F32.9 Major depressive disorder, single episode, unspecified; F17.210 Nicotine dependence, cigarettes, uncomplicated
CPT/HCPCS: 36415; 76830; 80053; 81003; 81015; 83605; 84702; 85025; 86140; 87077; 87086; 87186; 87389; 87480; 87491; 87510; 87591; 87661; 96361; 96372; 96374; 99284; A9270-GY; J1885; J2405

== ENCOUNTER 2021-07-24 06:38 | Inpatient (IN) ==
[2021-07-24 07:51] LABS: Urine Benzodiazepine Screen None Detected (None Detect); Urine Opiates Screen None Detected (None Detect)
[2021-07-24] MEDS ORDERED: Lactated Ringers 1000 ml BAG 1,000 ML IV ONE ×2 (10:01→11:44)
[2021-07-24] MEDS ORDERED: Buffered Lidocaine 1% SYRIN 1 ml INTRADERM ONE (10:01)
[2021-07-24 10:45] LABS: ABS Eosinophils 0.1 10^3/ul (0-0.6); ABS Lymphocytes 1.4 10^3/ul (1.0-4.8); ABS Monocytes 1.1 10^3/ul (0-0.8); ABS Neutrophils 10.4 10^3/ul (1.5-7.7); Eosinophil % 0.5 %; Hematocrit 37 % (35-47); Hemoglobin 11.9 g/dL (12.0-16.0); Lymphocyte % 10.8 %; Mean Corpuscular HGB Conc 33 g/dL (31-36); Mean Corpuscular Hemoglobin 26 pg (27-31); Mean Corpuscular Volume 80 fL (80-97); Mean Platelet Volume 8.4 fL (7.4-10.4); Platelet Count 245 10^3/uL (150-450); Red Blood Count 4.59 10^6 /uL (3.70-4.87); Red Cell Distribution Width 16 % (10-15); White Blood Count 12.9 10^3/uL (3.5-10.8)
[2021-07-24] MEDS ORDERED: OBEPIDURAL 250 ML EPIDURAL ONE (10:57)
[2021-07-24] MEDS ORDERED: Lactated Ringers 1000 ml BAG 1,000 ML IV SCH ×3 (11:00→12:00)
[2021-07-24] MEDS ORDERED: Lactated Ringers 1000 ml BAG 500 ML IV PRN ×2 (11:44)
[2021-07-24] MEDS ORDERED: Sodium Citrate/Citric Acid LIQ 15 ML UDC PO PRN (11:44)
[2021-07-24] MEDS ORDERED: Phenylephrine 40 mcg/mL 10mL (400mcg) SYRINGE IV PUSH PRN ×2 (11:44)
[2021-07-24] MEDS ORDERED: OBEPIDURAL 250 ML EPIDURAL SCH (12:00)
[2021-07-24 12:31] LABS: Urine Appearance Clear; Urine Bilirubin Negative (Negative); Urine Blood Negative (Negative); Urine Color Yellow; Urine Glucose Negative (Negative); Urine Ketones Trace (Negative); Urine Nitrite Negative (Negative); Urine Protein Negative (Negative); Urine Urobilinogen Negative (Negative)
[2021-07-24] MEDS ORDERED: Oxytocin in LR 20 UNITS/1,000 ML BAG IVPB ONE (16:24)
[2021-07-24] MEDS ORDERED: Albuterol HFA INHALER 8 gm MDI INH PRN (16:54)
[2021-07-24] MEDS ORDERED: Glycerin ADULT 2.4 gm SUPP PR PRN (16:55)
[2021-07-24] MEDS ORDERED: Witch Hazel PAD JAR TOPICAL PRN (16:55)
[2021-07-24] MEDS ORDERED: Dibucaine 1% OINT 28.35 GM TUBE PR PRN (16:55)
[2021-07-24] MEDS ORDERED: Oxytocin in LR 20 UNITS/1,000 ML BAG IVPB SCH (17:00)
[2021-07-25 07:54] LABS: ABS Eosinophils 0.2 10^3/ul (0-0.6); ABS Monocytes 1.3 10^3/ul (0-0.8); ABS Neutrophils 7.7 10^3/ul (1.5-7.7); Eosinophil % 1.6 %; Hematocrit 35 % (35-47); Hemoglobin 11.3 g/dL (12.0-16.0); Lymphocyte % 17.7 %; Mean Corpuscular HGB Conc 33 g/dL (31-36); Mean Corpuscular Hemoglobin 27 pg (27-31); Mean Corpuscular Volume 81 fL (80-97); Mean Platelet Volume 8.4 fL (7.4-10.4); Platelet Count 225 10^3/uL (150-450); Red Blood Count 4.25 10^6 /uL (3.70-4.87); Red Cell Distribution Width 16 % (10-15); White Blood Count 11.2 10^3/uL (3.5-10.8)
[2021-07-25 20:20] VITALS: BP 109/66
== END 2021-07-26 15:25 | disposition home or self-care (01) | DRG 560 ==
LOC: MCHOBOUT 06:38 → MCHOB 10:02
PROVIDERS: ADMIT Obstetrics & Gynecology; ATTEND Midwife